=== PATIENT | female | born 1995 | race Caucasian/White ===

== ENCOUNTER → 2024-01-07 10:09 | Outpatient (REF) | payer OTHER, SELFPAY ==
[2024-01-09 07:41] LABS: Quantiferon Mitogen minus NIL 9.99 IU/mL; Quantiferon NIL 0.01 IU/mL; Quantiferon Plus TB1 minus NIL 0.01 IU/mL (<=0.34); Quantiferon TB Gold Plus Negative (Negative)
== END ==
LOC: REG 10:09
PROVIDERS: ATTENDING PHYSICIAN Nurse Practitioner Family
DX: Z23 Encounter for immunization (principal)
CPT/HCPCS: 36415; 86480

== ENCOUNTER → 2024-04-15 11:28 | Outpatient (REF) | payer BC, SELFPAY ==
[2024-04-15 12:40] LABS: % Basophils 0.7 % (0-2); % Eosinophils 0.6 % (0-6); % Immature Granulocytes 0.2 % (0-0.5); % Lymphocytes 23.6 % (20.5-51.1); % Monocytes 6.8 % (1.7-9.3); % Neutrophils 68.1 % (42.2-75.2); Absolute Lymphocytes 1.3 10^3/uL (1.2-3.4); Absolute Monocytes 0.4 10^3/uL (0.1-0.6); Absolute Neutrophils 3.7 10^3/uL (1.4-6.5); Hematocrit 42.8 % (37.0-47.0); Mean Corpuscular Hgb 32.6 pg (27.0-31.0); Mean Platelet Volume 11.9 fL (7.4-10.4); Nucleated Red Blood Cells % 0 %; Platelet Count 201 10^3/uL (130-400); Red Cell Dist. Width 12.3 % (11.5-14.5); White Blood Cell Count 5.4 10^3/uL (4.8-10.8)
[2024-04-15 13:04] LABS: ALT (SGPT) 21 U/L (0-35); AST (SGOT) 20 U/L (14-36); Albumin 4.7 g/dl (3.5-5.0); Alkaline Phosphatase 70 U/L (38-126); Blood Urea Nitrogen 12 mg/dl (7-17); Carbon Dioxide 26 mmol/L (22-30); Chloride 105 mmol/L (98-107); Glucose 85 mg/dl (70-99); HDL Cholesterol 78 mg/dl; LDL Cholesterol, Calculated 129 mg/dl; Potassium 4.4 mmol/L (3.5-5.1); Sodium 141 mmol/L (135-145); Total Bilirubin 0.8 mg/dl (0.2-1.3); Total Cholesterol 224 mg/dl (50-199); Total Protein 7.2 g/dl (6.3-8.2); Triglyceride 85 mg/dl (10-149); Very Low Density Lipoprotein 17 mg/dl (0-30); eGFR > 60.00
[2024-04-17 12:12] LABS: HIV Combo Negative (Negative)
[2024-04-17 18:56] LABS: Hepatitis B Surface Antigen Negative (Negative)
[2024-04-17 19:14] LABS: Hepatitis C Antibody Negative (Negative)
== END ==
LOC: REG 11:28
PROVIDERS: ATTENDING PHYSICIAN Obstetrics & Gynecology Gynecology; FAMILY PHYSICIAN Family Medicine
DX: Z00.00 Encounter for general adult medical examination without abnormal findings (principal); E78.00 Pure hypercholesterolemia, unspecified; Z20.2 Contact with and (suspected) exposure to infections with a predominantly sexual mode of transmission
CPT/HCPCS: 36415; 80053; 80061; 85025; 86780; 86803; 87340; 87389; 87491; 87591

== ENCOUNTER 2024-04-23 17:04 | Emergency (ER) | payer BC, SELFPAY ==
[2024-04-23 17:06] VITALS: BP 135/94
--- NOTE | 2024-04-23 18:04 | ED.GENMED ---
History of Present Illness
<Vibha Rob MD, Resident - Last Filed: 04/23/24 22:25>
General
Chief Complaint: Throat Problem
Source: patient and family
Time Seen by Provider: 04/23/24 17:39
History of Present Illness
History of Present Illness:
This is a 28-year-old female patient with no significant past medical history presents to the ER with throat discomfort. She states that yesterday she started to have pain in her throat which she describes as a sharp pain and was continuous. This
was relieved on oral food intake and liquids. She had gone to the urgent care where strep test was negative. She denies any flulike symptoms such as runny nose, cough or headaches. She denies having any food that could contribute to her throat
pain. She has been taking [id number] lozenges which have provided her mild relief.
Past History
<Vibha Rob MD, Resident - Last Filed: 04/23/24 22:25>
Past History
ED Past Medical History: None
ED Past Surgical History: Other ([place] teeth removal)
Social History
Tobacco: Non-smoker
Alcohol: Occasional
Employment: Employed
Family History
Family History: Other (Maternal grandmother with thyroid surgery)
Review of Systems
<Vibha Rob MD, Resident - Last Filed: 04/23/24 22:25>
Review of Systems
Constitutional: Denies fever, fatigue or chills
EENT: Reports sore throat; Denies runny nose
Respiratory: Denies cough
Cardiac: Denies chest pain or palpitations
ABD/GI: Denies abdominal pain, nausea or vomiting
Musculoskeletal: Reports no symptoms
Neurological: Denies dizzy or headache
Phy Exam
<Vibha Rob MD, Resident - Last Filed: 04/23/24 22:25>
General Physical Exam
General Presentation: well appearing and no apparent distress
ENT Exam
ENT Exam: pharynx normal (No pharyngeal erythema present) and swallowing well
Cardiovascular Exam
Cardiovascular Exam: regular rate/rhythm and no murmur
Heart Sounds: normal
Pulmonary Exam
Pulmonary Exam: lungs clear, no respiratory distress and no crackles
Gastrointestinal Exam
Gastrointestinal Exam: non tender, soft and non distended
Neurological Exam
Neurological Exam: oriented x3
Musculoskeletal Exam
Musculoskeletal Exam: no edema
Skin Exam
Skin Exam: warm/dry
Psychiatric Exam
Psychiatric Exam: normal mood/affect
Course
<Vibha Angelica Rob MD, Resident - Last Filed: 04/23/24 22:25>
Orders/Labs/Results
Orders:
Orders
04/23/24 18:29
Comprehensive Metabolic Panel Urgent
Comment: ADD ON
TSH Reflex To Free T4 Urgent
04/23/24 19:35
Add On- LAB Urgent
Tests Added?: CBC, CMP
CT Neck With Iv Contrast Urgent
Comment:
Reason For Exam: throat pain
04/23/24 20:05
Complete Blood Count/With Diff Urgent
Abnormal Lab Results
04/23/24 04/23/24
18:29 20:05
MCH 32.0 H pg
(27.0-31.0)
MPV 11.7 H fL
(7.4-10.4)
Carbon Dioxide 18 L mmol/L
(22-30)
04/23/24 20:05
04/23/24 18:29
Vital Signs
Initial and Last Documented VS:
Initial Vital Signs
Pulse Resp BP Pulse Ox
85 13 135/94 99
04/23/24 17:06 04/23/24 17:06 04/23/24 17:06 04/23/24 17:06
Last Documented Vital Signs
Temp Pulse Resp BP Pulse Ox
98.3 F 72 18 103/71 100
04/23/24 17:15 04/23/24 20:09 04/23/24 20:09 04/23/24 20:09 04/23/24 20:09
<Donte Gill, DO - Last Filed: 04/23/24 18:34>
Orders/Labs/Results
Orders:
Orders
04/23/24 18:29
Comprehensive Metabolic Panel Urgent
Comment: ADD ON
TSH Reflex To Free T4 Urgent
04/23/24 19:35
Add On- LAB Urgent
Tests Added?: CBC, CMP
CT Neck With Iv Contrast Urgent
Comment:
Reason For Exam: throat pain
04/23/24 20:05
Complete Blood Count/With Diff Urgent
Abnormal Lab Results
04/23/24 04/23/24
18:29 20:05
MCH 32.0 H pg
(27.0-31.0)
MPV 11.7 H fL
(7.4-10.4)
Carbon Dioxide 18 L mmol/L
(22-30)
04/23/24 20:05
04/23/24 18:29
Vital Signs
Initial and Last Documented VS:
Initial Vital Signs
Pulse Resp BP Pulse Ox
85 13 135/94 99
04/23/24 17:06 04/23/24 17:06 04/23/24 17:06 04/23/24 17:06
Last Documented Vital Signs
Temp Pulse Resp BP Pulse Ox
98.3 F 72 18 103/71 100
04/23/24 17:15 04/23/24 20:09 04/23/24 20:09 04/23/24 20:09 04/23/24 20:09
<Vibha Rob MD, Resident - Last Filed: 04/23/24 22:25>
*Critical Care Note
Total Time (30-74mins, 75-104mins- exclusive of procedures): Not Applicable
<Vibha Rob MD, Resident - Last Filed: 04/23/24 22:25>
Update Note
Update Note:
Patient is afebrile and hemodynamically stable on exam. No pharyngeal erythema or exudates seen. Mild tenderness present on anterior neck. US thyroid and TSH ordered. TSH within normal limits. Due to TSH normal and no palpable nodule on neck exam,
offered patient CT neck with contrast as patient still wished to pursue further workup and she was agreeable. CT neck with no mass or adenopathy present. Patient is stable for discharge with counselling to see PCP for further workup.
ED Attending Note
<Vibha Rob MD, Resident - Last Filed: 04/23/24 22:25>
-
Portions of this chart may have been created with voice recognition software.� Occasional wrong word or��sound alike� substitutions may have occurred due to the inherent limitations of voice recognition software.
<Donte Gill, DO - Last Filed: 04/23/24 18:34>
ED Attending Note
Patient seen and examined by attending physician: Yes
I performed a history and physical exam of patient and discussed management with resident, I reviewed resident's note and agree with documented findings and plan of care.: Yes
ED Attending Note:
I have seen and evaluated the patient with a [id number] encounter. I have spoken to the resident and involved in the medical history, the physical exam, medical decision making.
Evaluation and management service: agree unless noted differently below.
Results interpretation: agree unless noted differently below.
Focused HPI: 28-year-old female presenting with throat discomfort. Patient states it actually gets better when she eats but she has a persistent sensation over her anterior neck.
Physical exam: Posterior pharynx clear. Mild fullness palpated to thyroid
Medical Decision Making: Mother at bedside indicates there is a family history of thyroid dysfunction. Will obtain TSH and Thyroid ultrasound but discussed outpatient follow-up with PCP and GI if symptoms persist
Discharge Plan
Departure
Patient Disposition: Home (Routine Discharge)
Date of Disposition: 04/23/24
Time of Disposition: 21:50
Patient with high blood pressure during this ER visit?: No
Discharge Problem:
Throat discomfort
Referrals:
Urszula Crane MD [Family Provider] -
Activity Restrictions/Additional Instructions:
If experiencing symptoms such as worsening pain, shortness of breath or uncontrollable nausea/vomiting please return to the ER. Follow-up PCP within 1 week for further care such as US neck.
Interventions
Interventions:
*Risk Screen - Suicide Last Done: 04/23/24 17:06
*General Assessment Last Done: 04/23/24 17:06
*Neglect/Abuse Screening Last Done: 04/23/24 17:06
ED- Fall Risk Assessment Last Done: 04/23/24 19:25
*ED COVID-19 Vaccine History Last Done: 04/23/24 19:25
*Nursing Disposition Last Done: 04/23/24 21:54
ED-EENT Assessment Last Done: 04/23/24 17:19
ED- Pulmonary Assessment Last Done: 04/23/24 17:19
Discharge Date and Time
Discharge Date/Time: 04/23/24 21:54
Print Language: JAPANESE
[2024-04-23 18:25] VITALS: BMI 24.2
[2024-04-23 19:20] LABS: TSH Reflex To Free T4 0.71 uIU/ml (0.47-4.68)
[2024-04-23 20:09] VITALS: BP 103/71
[2024-04-23 20:11] LABS: % Basophils 0.4 % (0-2); % Eosinophils 0.3 % (0-6); % Immature Granulocytes 0.3 % (0-0.5); % Lymphocytes 21.6 % (20.5-51.1); % Monocytes 6.8 % (1.7-9.3); % Neutrophils 70.6 % (42.2-75.2); Absolute Monocytes 0.6 10^3/uL (0.1-0.6); Absolute Neutrophils 6.4 10^3/uL (1.4-6.5); Hematocrit 42.5 % (37.0-47.0); Hemoglobin 14.8 g/dL (12.0-16.0); Mean Corp Hgb Conc. 34.8 g/dL (33.0-37.0); Mean Corpuscular Volume 91.8 fL (81.0-99.0); Mean Platelet Volume 11.7 fL (7.4-10.4); Nucleated Red Blood Cells % 0 %; Platelet Count 210 10^3/uL (130-400); Red Blood Cell Count 4.63 10^6/uL (4.20-5.40); Red Cell Dist. Width 12.3 % (11.5-14.5)
[2024-04-23 20:29] LABS: ALT (SGPT) 25 U/L (0-35); AST (SGOT) 23 U/L (14-36); Albumin 4.7 g/dl (3.5-5.0); Alkaline Phosphatase 82 U/L (38-126); Blood Urea Nitrogen 8 mg/dl (7-17); Calcium 10.1 mg/dl (8.4-10.2); Carbon Dioxide 18 mmol/L (22-30); Chloride 107 mmol/L (98-107); Estimated Creatinine Clearance 104 ml/min; Glucose 82 mg/dl (70-99); Potassium 3.8 mmol/L (3.5-5.1); Sodium 139 mmol/L (135-145); Total Bilirubin 0.7 mg/dl (0.2-1.3); Total Protein 7.3 g/dl (6.3-8.2); eGFR > 60.00
== END 2024-04-23 21:54 | disposition home or self-care (01) ==
LOC: EMR 17:04
PROVIDERS: Student in an Organized Health Care Education/Training Program; EMERGENCY PHYSICIAN Student in an Organized Health Care Education/Training Program; FAMILY PHYSICIAN Family Medicine
DX: R09.89 Other specified symptoms and signs involving the circulatory and respiratory systems (principal); R07.0 Pain in throat
CPT/HCPCS: 99284; 70491; 80053; 84443; 85025; Q9967